=== PATIENT | female | born 1960 | race Caucasian/White ===

== ENCOUNTER → 2022-09-29 | Outpatient (CLI) | payer BC ==
--- NOTE | 2022-09-29 20:02 | CT ---
EXAMINATION TYPE: CT pelvis wo con DATE OF EXAM: 09/29/2022 COMPARISON: None. HISTORY: pain pelvis and left hip. unilateral primary osteoarthritis left hip. Left hip and leg pain for [address] DLP: 177.0 mGycm Automated exposure control for dose reduction was used. 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 Osseous structures are dem ineralized. Left hip shows asymmetric moderate to severe superior narrowing with endplate sclerosis. There is juliet tical linear lucency consistent with acute or subacute fracture through the lateral aspect of the sup erior acetabulum coronal images 21 through 24 with adjacent sclerosis. There is 8mm triangular shaped lucent lesion in the superior left femoral head coronal image 23 could reflect adjacent bony avulsio n injury. Other etiologies not excluded. Muscle bulk is maintained. No groin hernia or adenopathy is seen. Visualized pelvis shows no suspicious bowel dilatation. There is posterior left hernia defect contain ing nondilated bowel consistent with inferior lumbar hernia on axial image 13. IMPRESSION: As above.
== END | disposition home or self-care (01) ==
LOC: RADCTMAIN 18:38
PROVIDERS: ATTEND Orthopaedic Surgery
DX: M16.12 Unilateral primary osteoarthritis, left hip (principal); M25.562 Pain in left knee; M25.852 Other specified joint disorders, left hip; K46.9 Unspecified abdominal hernia without obstruction or gangrene
CPT/HCPCS: 72192

== ENCOUNTER → 2023-07-09 | Outpatient (CLI) | payer BC ==
[2023-07-09 12:54] LABS: INR 0.9 (<1.2); Partial Thromboplastin Time 22.8 sec (22.0-30.0); Prothrombin Time 9.8 sec (10.0-12.5)
[2023-07-09 15:17] LABS: ALT 17 U/L (8-44); AST 19 U/L (13-35); Albumin 4.7 g/dL (3.8-4.9); Albumin/Globulin Ratio 2.24 Ratio (1.60-3.17); Alkaline Phosphatase 77 U/L (41-126); BUN/Creat Ratio 16.83 Ratio (12.00-20.00); Blood Urea Nitrogen 10.1 mg/dL (9.0-27.0); Calcium 10.2 mg/dL (8.7-10.3); Chloride 104 mmol/L (96-109); Globulin 2.1 g/dL (1.6-3.3); Glucose 82 mg/dL (70-110); Sodium 143 mmol/L (135-145); Total Bilirubin 0.5 mg/dL (0.3-1.2); Total Protein 6.8 g/dL (6.2-8.2)
[2023-07-09 15:24] LABS: HCT 43.6 % (37.2-46.3); MCH 31.8 pg (27.0-32.0); MCHC 32.1 g/dL (32.0-37.0); MCV 99.1 FL (80.0-97.0); Mean Platelet Volume 9.2 FL (9.5-12.2); NRBC Per 100 WBC 0 X 10*3/uL (0.00-0.01); Platelet Count 281 X 10*3/uL (140-440); RDW 11.9 % (11.5-14.5); WBC 7.01 X 10*3/uL (4.50-10.00)
== END | disposition home or self-care (01) ==
LOC: LABPAT 11:28
PROVIDERS: ATTEND Orthopaedic Surgery
DX: Z01.812 Encounter for preprocedural laboratory examination (principal); M16.12 Unilateral primary osteoarthritis, left hip; Z22.322 Carrier or suspected carrier of Methicillin resistant Staphylococcus aureus
CPT/HCPCS: 80053; 83036; 85027; 85610; 85730; 86850; 86900; 86901; 87070

== ENCOUNTER 2023-07-15 05:33 | Observation (INO) | payer BC ==
[2023-07-14 09:07] VITALS: BMI 20.2
[2023-07-15] MEDS ORDERED: HYDROmorphone 0.5 MG/0.5 ML SYRINGE IVP PRN ×3 (05:49→09:44)
[2023-07-15] MEDS ORDERED: LIDOCAINE 1% (10MG/ML) FOR IV START INTRADERMA PRN (05:49)
[2023-07-15] MEDS ORDERED: ONDANSETRON 4 MG/2 ML VIAL IVP PRN ×2 (06:00→09:44)
[2023-07-15] MEDS ORDERED: TRANEXAMIC 1,000 MG/100ML-NACL 1,000 MG in SALINE 1 100ML.BAG IVPB PRN (06:00)
[2023-07-15] MEDS ORDERED: TRANEXAMIC 1,000 MG/100ML-NACL 1,000 MG in SALINE 1 100ML.BAG IV PRN (06:00)
[2023-07-15] MEDS: LACTATED RINGERS 1,000 ML IV SCH ×2 (06:16→15:52)
[2023-07-15] MEDS: ACETAMINOPHEN TAB 500 MG TAB PO PRN (06:19)
[2023-07-15] MEDS: DOCUSATE 100 MG CAP PO PRN (06:19)
[2023-07-15] MEDS: oxyCODONE ER 10 MG TAB.ER.12H PO PRN (06:20)
[2023-07-15] MEDS: ONDANSETRON 4 MG/2 ML VIAL IVP ONE (06:22)
[2023-07-15] MEDS: FAMOTIDINE 20 MG/2 ML VIAL IVP PRN (06:22)
[2023-07-15] MEDS: DEXAMETHASONE SOD PHOSPHATE 10 MG/ML 1 ML VIAL IV PRN (06:23)
[2023-07-15] MEDS: KETOROLAC 15 MG/ML 1 ML VIAL IVP PRN (06:23)
[2023-07-15] MEDS: fentaNYL (PF) 50 MCG/ML 2 ML AMP IVP ONE (06:43)
[2023-07-15] MEDS: MIDAZOLAM 2 MG/2 ML VIAL IVP ONE (06:43)
[2023-07-15] MEDS ORDERED: SODIUM CHLORIDE 0.9% (PF) 10 ML VIAL ONE (06:57)
[2023-07-15] MEDS ORDERED: TRANEXAMIC 1,000 MG/100ML-NACL PREMIX BAG ONE (06:57)
[2023-07-15] MEDS ORDERED: ROCURONIUM 10 MG/ML (5 ML VIAL) IV ONE (06:57)
[2023-07-15] MEDS ORDERED: fentaNYL (PF) 50 MCG/ML 2 ML AMP ONE (06:57)
[2023-07-15] MEDS ORDERED: GLYCOPYRROLATE 0.2 MG/ML 2 ML VIAL ONE (06:57)
[2023-07-15] MEDS ORDERED: ePHEDrine 50 MG/ML 1 ML VIAL ONE (06:57)
[2023-07-15] MEDS ORDERED: LIDOCAINE 1% INJ 10MG/ML (20 ML MDV) ONE (06:57)
[2023-07-15] MEDS ORDERED: ROPIVACAINE 5 MG/ML 30 ML VIAL ONE (06:57)
[2023-07-15] MEDS ORDERED: DEXAMETHASONE SOD PHOSPHATE 4 MG/ML 1 ML VIAL ONE (06:57)
[2023-07-15] MEDS ORDERED: PHENYLEPHRINE-0.9% NACL SYG 1,000 MCG/10 ML SYRINGE ONE (06:57)
[2023-07-15] MEDS ORDERED: NEOSTIGMINE 1 MG/ML 10 ML VIAL ONE (06:57)
[2023-07-15] MEDS ORDERED: PROPOFOL 10 MG/ML 20 ML VIAL IV ONE (06:57)
[2023-07-15] MEDS ORDERED: MIDAZOLAM 2 MG/2 ML VIAL ONE (06:57)
--- NOTE | 2023-07-15 07:08 | P.ANPRN ---
Procedure Note - Anesthesia - Nerve Block Performed Left Hai Single Time Out Performed: Yes Date of Procedure: 07/15/23 Procedure Start Time: 06:42 Procedure Stop Time: 06:48 Location of Patient: PreOp Indication: Acute Post-Operative Pain, Requested by Surgeon Sedation Type: Sedate with meaningful contact maintained Preparation: Sterile Prep Position: Supine Needle Types: Pajunk Needle Gauge: 21 Ultrasound used to visualize needle placement: Yes Ultrasound used to observe medication spread: Yes Injectate: 0.5% Ropivacaine (see comment for volume) (20 ml + 10 ml NS + 4 mg Dexamethasone) Blood Aspirated: No Pain Paresthesia on Injection Noted: No Resistance on Injection: Normal Image Stored and Saved: Yes Events: Uneventful and Well Tolerated
[2023-07-15] MEDS: ROPIVACAINE/EPI/CLONIDINE/KET 50 ML SYRINGE MISCELLANE PRN (08:07)
[2023-07-15] MEDS: EPINEPHrine 2 MG in SODIUM CHLORIDE 0.9% 200 ML IV ONE (08:18)
[2023-07-15] MEDS: LACTATED RINGERS 1,000 ML IV ONE ×2 (08:19→12:34)
[2023-07-15] MEDS ORDERED: NALOXONE 0.4 MG/ML 1 ML VIAL IV PRN (09:44)
[2023-07-15] MEDS ORDERED: HYDROmorphone 1 MG/ML 1 ML SYRINGE IVP PRN (09:44)
[2023-07-15] MEDS ORDERED: MAGNESIUM HYDROXIDE 2,400 MG/30 ML CUP PO PRN (09:44)
[2023-07-15] MEDS ORDERED: HYDROcodone/APAP 5-325MG 1 EACH TAB PO PRN (09:44)
--- NOTE | 2023-07-15 09:51 | P.OP ---
Date of Procedure: 07/15/23 Preoperative Diagnosis: 1. Severe left hip osteoarthritis 2. Severe osteopenia 3. Prior extensive spine fusion 4. Prior iliac crest bone graft harvest resulting in herniation status post repair at [facility] Postoperative Diagnosis: Same. Procedure(s) Performed: Left direct anterior total hip arthroplasty Implants: 1. Jaleel Trident II Acetabular Cup, Size #50 2. Jaleel Accolade C Size # 4 Femoral Stem, Standard Offset 3. Dual Mobility OD 38 mm, ID 22.2 mm, +0 neck Anesthesia: LAW, regional Surgeon: Brian Hager Recycling Tech #1: Stephy Weinstein Estimated Blood Loss (ml): 100 IV fluids (ml): 1,200 Pathology: none sent Condition: stable Disposition: PACU Indications for Procedure: The patient is very pleasant 62-year-old female who presented to my office for severe left hip pain and x-rays showing advanced left hip osteoarthritis. Her x-rays showed an extensive spinal fusion and she had a history of iliac crest bone graft harvest. On her preoperative pelvis x-ray herniated bowel was noted so she was sent to [facility] for laparoscopic repair of her hernia. Following this she was cleared for left hip replacement by her general surgeon at the [facility]. I met with the patient preoperatively and her laparoscopic incisions were well-healed and there were no lesions or concerning findings over the anterior aspect of the hip. We both agreed to proceed with a left hip replacement given her severe and incapacitating pain. I had a long discussion with the patient in the office on the potential risks and complications of an elective total hip replacement through a direct anterior approach. Risks discussed include, but are certainly not limited to, risks from anesthesia, superficial infection requiring local wound care or antibiotics, deep yamileth-prosthetic joint infection and the treatment required to eradicate infection, intraoperative fracture, postoperative periprosthetic fracture, damage to local blood vessels or nerves particularly the lateral femoral cutaneous nerve, delayed wound healing requiring local wound care or possibly surgical debridement, hip dislocation, leg length discrepancy, soft tissue irritation around the total hip implant such as iliopsoas tendinitis or trochanteric bursitis, wear and osteolysis from the implants, squeaking or audible noises, groin pain, thigh pain, heterotopic ossification, stiffness, as eptic loosening of the implants, dissatisfaction with surgical outcome, need for revision surgery, DVT, PE, swelling of the operative extremity, acute coronary event, stroke, failure to thrive, and possibly loss of life or limb. The patient understands that while these are the most common complications after an elective hip replacement there are certainly other less common complications possible. They were given ample time to ask questions regarding the potential complications of a hip replacement. Following our discussion the patient provided their verbal and written consent to go forward with an elective total hip replacement. Operative Findings: The patient was noted to have severe osteopenia and very poor bone quality both on the acetabular side and femur. I had an excellent press fit with the cup which was augmented with a single screw. The patient was found to have exceedingly poor bone in the left proximal femur so I elected to use cemented femoral fixation to lower her risk of periprosthetic fracture. I also elected to use a dual mobility articulation to lower her risk of dislocation given her extensive spinal fusion and concern for altered hip spine dynamics. Description of Procedure: The patient was identified in the preoperative holding area and the correct hip was marked with my initials. I reviewed the procedure and consent with the patient. All of their questions were answered. The patient was then brought back into the operating room by anesthesia. While on the [facility] anesthesia was administered by the anesthesia team. Preoperative antibiotics and tranexamic acid were also given. After the patient was under anesthesia I examined their ankles to determine their preoperative leg length discrepancy. The skin over the anterior aspect of the hip was shaved to remove hair over the site of planned incision. Both feet and ankles were padded with webril and boots for the Bondurant were applied. The patient was then carefully transferred onto the Bondurant table. A perineal post was immediately placed. The arms were placed on arm holders and were well-padded. Both boots were secured to the spars on the Bondurant table. The patient was positioned so that the pelvis was centered over the post. Nonsterile drapes were applied. A timeout was performed identifying the correct patient, operative extremity, and procedure. At this point fluoroscopy was brought in to take preoperative images of the pelvis and operative hip. Using the standing AP pelvis from the office as a template, a comparable image was obtained with fluoroscopy. A metallic bar was used to create a bi-ischial line for use as a reference to leg length adjustments during the procedure. Global offset was also measured on both the operative and nonoperative leg. Fluoroscopy was then brought out and a pre-scrub using a chlorhexidine scrub brush was performed. The operative limb was then prepped and draped in the standard sterile fashion. An anterior longitudinal incision was made lateral and distal to the ASIS. The skin and subcutaneous tissues were incised sharply. The underlying tensor fascia was identified and incised in its midportion. The fascia was dissected free from the underlying muscle and the muscle belly was retracted. A blunt tipped cobra retractor was placed over the superior neck under the muscle fibers of the gluteus minimus. The deep enveloping fascia of the tensor was incised. The anterior leash of vessels were then identified and cauterized. The fascia between the rectus and the capsule was then incised and the pre-capsular fat was excised. A second Cobra was placed inferior to the neck. The interval between the rectus and iliocapsularis and the hip capsule was developed and a retractor was placed carefully over the anterior rim of the acetabulum. A T-shaped anterior capsulotomy was performed. The superior capsular leaflet was left in place in the inferior capsular flap was excised. The Cobra retractors were placed intracapsularly. We then made a femoral neck osteotomy according to preoperative and intraoperative templating and confirmed the level of the osteotomy using fluoroscopic imaging. The femoral head was removed, passed off to the back table, and sized. The superior capsular flap was excised. Retractors were placed circumferentially exposing the acetabulum. We then circumferentially debrided the acetabulum free of labrum and osteophytes. The pulvinar was removed to fully visualize the cotyloid fossa. We then sequentially reamed to achieve peripheral fit and excellent bleeding subchondral bone. The socket was thoroughly irrigated. The acetabular component was impacted into the appropriate position using fluoroscopy to guide version, inclination, and depth of insertion taking care to have a comparable image of the AP pelvis to the standing image taken in the office. An excellent press-fit was achieved and final position was confirmed using fluoroscopy. The press fit was augmented with bony cancellus dome screws. The liner was then impacted into the socket. Attention was then turned to the femur. The remnant dorsal lateral capsule was excised. The short external rotators were visible and protected. A bone hook was used to confirm appropriate translation of the trochanter away from the acetabulum. The leg was then extended and adducted and the bone hook was used to elevate the femur for broaching. On inspection of the patient's proximal femur, they appeared to have poor bone quality so I elected to proceed with cemented fixation of the femoral component. A box osteotome and blunt tipped canal sound was then utilized to gain access to the femoral canal. We then sequentially broached the femur in appropriate anteversion until torsional stability was achieved and the implant was felt to have reached the appropriate size to allow trialing. The neck cut was brought flush to the trial broach with a calcar planar. A trial neck and head were then placed onto the broach and the hip was atraumatically reduced under direct visualization. External rotation to 90 was performed to assess stability. Fluoroscopy was brought in. An AP and lateral fluoroscopic image of the proximal femur was obtained to assess position and fill of the trial broach. An AP of the pelvis was then obtained and matched to the preoperative image taken. A bi-ischial bar was then placed and measurements were taken to assess changes in length and offset. The hip was then carefully dislocated, the proximal femur was exposed, and the trial implants were removed. The proximal femur was then prepared for cementing. The canal was thoroughly irrigated with pulsatile lavage to remove blood and marrow contents. A cement restrictor was placed to a depth just distal to the tip of the final implant. Epinephrine-soaked gauze was then packed into the proximal femur. 2 bags of cement were then mixed using a centrifuge and placed into a cement gun. Anesthesia was notified that cementing was about to commence to make sure the patient was appropriately ventilated and hydrated. Once the cement had reached appropriate consistency, the cement gun was used to fill the canal in a retrograde fashion starting at the restrictor. Cement was then pressurized into the canal with a blue tipped international representative. The stem was then carefully introduced into the cement taking care to guide the implant into appropriate version. The stem was held in position until the cement had fully set. All extra cement was removed while the cement was hardening. The trunnion was cleansed and the final head was tapped into place to engage the Razo taper. The acetabulum was irrigated and visualized to be free of debris. The hip was carefully reduced. Stability was checked clinically with external rotation to 90 and there was no evidence of instability. Final fluoroscopic images were taken. The wound was then thoroughly irrigated and soaked with a dilute Betadine rinse for 3 minutes. 3 L of sterile saline was irrigated through the wound using pulsatile lavage. Local anesthetic cocktail was injected into the soft tissues around the surgical field. The wound was then closed in layers. A sterile dressing was placed over the surgical incision. The drapes were taken down and the patient was carefully transferred off of the Bondurant table. Following removal of the boots the leg lengths felt acceptable. The patient was then taken to recovery room having tolerated the procedure well. PLAN: The patient can weight-bear as tolerated on the operative extremity. 2 doses of postoperative antibiotics. DVT prophylaxis with aspirin 81 mg twice a day based on preoperative risk stratification. Physical therapy for gait training.
--- NOTE | 2023-07-15 10:21 | XR ---
EXAMINATION TYPE: XR Hip Limited LT DATE OF EXAM: 07/15/2023 Comparison: None Clinical History: 62-year-old female Status post hip surgery, assess surgical alignment Findings: Degenerative changes left SI joint. Post surgical change of left hip total arthroplasty. Acetabular c up and femoral stem components of the prosthesis appear well seated without periprosthetic fracture. Some residual bony spurring remains along the superolateral margin of the acetabular cup component. S ome mild bony debris is present along the superior aspect of the hip joint. Scattered soft tissue air related to recent operation. Alignment grossly anatomic. Impression: Uncomplicated postoperative appearance left total hip arthroplasty. Some mild bony debris noted super ior to the prosthetic left hip joint.
--- NOTE | 2023-07-15 10:22 | FL ---
EXAMINATION TYPE: FL guidance operating room, XR Hip Complete LT DATE OF EXAM: 07/15/2023 Comparison: None Clinical History: 62-year-old female LEFT ANTERIOR HIP Findings: 36 sec fluoro, 1.3738 Gycm2 LEFT ANTERIOR HIP replacement 7 images provided. Impression: Intraoperative fluoroscopy as above.
[2023-07-15] MEDS: droPERidol 5 MG/2 ML VIAL IVP ONE (15:52)
[2023-07-15] MEDS: ASPIRIN 81 MG PO SCH (20:29)
[2023-07-15] MEDS: SENNOSIDES-DOCUSATE SODIUM 1 EACH TAB PO SCH (20:29)
[2023-07-15] MEDS: HYDROcodone/APAP 5-325MG 1 EACH TAB PO PRN (20:30)
[2023-07-16] MEDS: FAMOTIDINE 20 MG TAB PO SCH (07:46)
[2023-07-16 08:46] VITALS: RESP 16
[2023-07-16 11:08] LABS: Basophils # (A) 0.03 X 10*3/uL (0.00-0.10); Basophils % (A) 0.3 %; Eosinophils # (A) 0.01 X 10*3/uL (0.04-0.35); Eosinophils % (A) 0.1 %; HCT 30.3 % (37.2-46.3); HGB 10.2 g/dL (12.0-15.0); Lymphocytes # (A) 1.63 X 10*3/uL (0.90-5.00); Lymphocytes % (A) 17.3 %; MCH 32.4 pg (27.0-32.0); MCHC 33.7 g/dL (32.0-37.0); MCV 96.2 FL (80.0-97.0); Mean Platelet Volume 10.2 FL (9.5-12.2); Monocytes # (A) 1.44 X 10*3/uL (0.20-1.00); Monocytes % (A) 15.3 %; NRBC Per 100 WBC 0 X 10*3/uL (0.00-0.01); Neutrophils # (A) 6.31 X 10*3/uL (1.80-7.70); Neutrophils % (A) 66.8 %; Platelet Count 188 X 10*3/uL (140-440); RBC 3.15 X 10*6/uL (4.10-5.20); RDW 11.9 % (11.5-14.5); WBC 9.44 X 10*3/uL (4.50-10.00)
[2023-07-16 11:17] LABS: African American GFR (CKD) >90 (>60 ml/min/1.73 sqM); Anion Gap 2 mmol/L; Blood Urea Nitrogen 10 mg/dL (7-17); Calcium 8.8 mg/dL (8.4-10.2); Carbon Dioxide 28 mmol/L (22-30); Chloride 107 mmol/L (98-107); Glucose 95 mg/dL (74-99); Non-African American GFR(CKD) >90 (>60 ml/min/1.73 sqM); Potassium 3.8 mmol/L (3.5-5.1); Sodium 137 mmol/L (137-145)
--- NOTE | 2023-07-16 13:13 | P.CONS ---
History of Present Illness - Reason for Consult Consult date: 07/16/23 Medical management Requesting physician: Brian Hager - Chief Complaint Left hip osteoarthritis, status post direct anterior total hip arthroplasty - History of Present Illness This is a 62-year-old female with past medical history significant for recent robotic repair of abdominal hernia May 13, 2023 at [facility], back surgery, lumbar spinal fusion, former nicotine dependence, depression, osteoarthritis, status post left direct anterior total hip arthroplasty. Tolerated procedure well. Reports ambulated in room to bathroom during the night, tolerated exert ion well. this morning reports increased pain. Became lightheaded and dizzy upon getting up this morning to chair, reported decreased blood pressure, recently had received pain medication. Currently comfortable laying in chair and receiving IV fluid bolus. Denies chest pain, palpitations or shortness of breath. Maintaining O2 sats in the high 90s on room air. Reports minimal diet intake x 3 days prior to surgery secondary to her hip pain. Passing flatus. Tmax 99.3, WBC 9.44. Hemoglobin 10.2, platelets 188. Chemistry unremarkable. Review of Systems ROS Statement: Those systems with pertinent positive or pertinent negative responses have been documented in the HPI. ROS Other: All systems not noted in ROS Statement are negative. Past Medical History Past Medical History: Osteoarthritis (OA) History of Any Multi-Drug Resistant Organisms: None Reported Past Surgical History: Back Surgery, Hernia Repair Additional Past Surgical History / Comment(s): Lumbar spinal fusion 1998, abdominal hernia repair 05/13/23. Past Anesthesia/Blood Transfusion Reactions: No Reported Reaction Past Psychological History: Depression Smoking Status: Former smoker Past Alcohol Use History: None Reported Past Drug Use History: None Reported - Past Family History Mother Family Medical History: No Reported History Medications and Allergies Home Medications Medication Instructions Recorded Confirmed Type Acetaminophen [Tylenol] 325 - 650 mg PO Q4-6H PRN 07/14/23 07/14/23 History Collagen (Unknown Dose) 1 dose PO DAILY 07/14/23 07/14/23 History Glucosamine (Unknown Dose) 1 tab PO DAILY 07/14/23 07/14/23 History Multivitamins, Thera [Multivitamin 1 tab PO DAILY 07/14/23 07/14/23 History (formulary)] Diclofenac Sodium [Voltaren] 75 mg PO BID #60 tab 07/15/23 Rx HYDROcodone/APAP 7.5-325MG [Marshall 1 - 2 tab PO Q6HR PRN #32 tab 07/15/23 Rx 7.5-325] Omeprazole 20 mg PO DAILY #30 tab 07/15/23 Rx Ondansetron Odt [Zofran Odt] 4 mg PO Q8HR PRN #14 tab 07/15/23 Rx Sennosides-Docusate Sodium 1 tab PO BID #60 tablet 07/15/23 Rx [Senokot-S] Aspirin 81 mg PO BID #60 tab 07/16/23 Rx Allergies Allergy/AdvReac Type Severity Reaction Status Date / Time venom-honey bee Allergy Anaphylaxis Verified 07/15/23 05:50 [bee venom (honey bee)] Physical Exam Vitals: Vital Signs Temp Pulse Resp BP BP Pulse Ox 07/16/23 07:21 99.3 F 93 16 109/66 98 07/16/23 01:47 98.5 F 103 H 18 117/75 95 07/15/23 20:10 98.6 F 86 18 100/62 95 07/15/23 14:26 98.8 F 89 18 110/68 98 07/15/23 13:38 95 16 103/62 100 07/15/23 13:08 87 16 101/62 98 Intake and Output 07/15/23 07/16/23 07/16/23 22:59 06:59 14:59 Other: Voiding Method Toilet # Voids 1 2 1 Weight 50.1 kg PHYSICAL EXAM: VITAL SIGNS: [As above] GENERAL: Alert and oriented x 3, sitting up in chair, no acute distress HEENT: Normocephalic, conjunctivae normal. eyes normal. MMM. NECK: Supple, no JVD. No thyroid enlargement. No LNs CARDIOVASCULAR: S1, S2 regular. No murmur RESPIRATION: Unlabored, equal air entry, essentially clear with bilateral bases diminished. ABDOMEN: Soft, nondistended, nontender . No guarding. Bowel sounds heard. LEGS: Left lower extremity dressing clean dry and intact, no calf tenderness, no edema. no swelling. Positive DP pulse. NERVOUS SYSTEM: Cranial N 2-12 grossly normal. No focal deficits. Strength and sensation grossly intact. Skin: Warm and dry, no rash Results CBC & Chem 7: 07/16/23 06:45 07/16/23 06:45 Labs: Abnormal Lab Results - Last 24 Hours (Table) 07/16/23 Range/Units 06:45 RBC 3.15 L (4.10-5.20) X 10*6/uL Hgb 10.2 L (12.0-15.0) g/dL Hct 30.3 L (37.2-46.3) % MCH 32.4 H (27.0-32.0) pg Monocytes # 1.44 H (0.20-1.00) X 10*3/uL Eosinophils # 0.01 L (0.04-0.35) X 10*3/uL Assessment and Plan Assessment: Left hip osteoarthritis, status post left direct anterior total hip arthroplasty Recent abdominal [facility]nia [facility] repair [facility] Postoperative atelectasis, expected outcome Lumbar spinal fusion, history of Former nicotine dependence Depression Plan: Continue on current medication using ,monitoring and symptomatic treatment. Aggressive pulmonary toileting with incentive spirometer reinforced. Pain management and DVT prophylaxis as per orthopedic surgery/primary. PT. The impression and plan of care has been dictated as directed. : I performed a history and examination of this patient, discussed the same with the dictator. I agree with the dictator's note ,documented as a scribe. Any additional findings or plans will be noted.
--- NOTE | 2023-07-16 13:25 | P.PN ---
Subjective Progress Note Date: 07/16/23 Patient is overall doing well. She states that early this morning however when she got up with therapy she became lightheaded and her blood pressure drop. She attributes this to not having eaten much over the last 3 days. At time of my evaluation this morning she is doing well and her pain is controlled. Objective - Vital Signs Vital signs: Vital Signs Temp 99.3 F 07/16/23 07:21 Pulse 93 07/16/23 07:21 Resp 16 07/16/23 07:21 BP 109/66 07/16/23 07:21 Pulse Ox 98 07/16/23 07:21 FiO2 Intake & Output 07/15/23 07/16/23 07/16/23 18:59 06:59 18:59 Intake Total 2000 Output Total 100 Balance 1901 Weight 50.1 kg Intake: IV 2000 Output: Estimated Blood Loss 100 Other: Voiding Method Toilet # Voids 1 2 1 - Exam The patient is sitting up at bedside in a chair. She is alert and able to answer questions. A focused exam of the left hip shows an intact dressing over the anterior aspect of the hip. There is minimal swelling in the leg. Femoral nerve function is intact. Distally she is able to actively plantarflex and dorsiflex her ankle and her toes - Labs CBC & Chem 7: 07/16/23 06:45 07/16/23 06:45 Labs: Abnormal Lab Results - Last 24 Hours (Table) 07/16/23 Range/Units 06:45 RBC 3.15 L (4.10-5.20) X 10*6/uL Hgb 10.2 L (12.0-15.0) g/dL Hct 30.3 L (37.2-46.3) % MCH 32.4 H (27.0-32.0) pg Monocytes # 1.44 H (0.20-1.00) X 10*3/uL Eosinophils # 0.01 L (0.04-0.35) X 10*3/uL Assessment and Plan Assessment: Post-operative day #1 status post left direct anterior total hip arthroplasty Plan: 1. Weight bear as tolerated on the operative extremity, up with assistance and a walker 2. DVT prophylaxis with aspirin 81 mg BID 3. 2 doses of post operative antibiotics 4. Leave surgical dressing in place 5. Internal medicine for yamileth-operative medical management 6. Physical therapy for gait training and mobilization 7. Dispo: Discharge home later today if passes PT, she is cleared by internal medicine, her vital signs are stable and pain controlled. If she needs another night she can stay until tomorrow given her hypotensive episode earlier today.
--- NOTE | 2023-07-16 15:38 | P.DS ---
Providers Date of admission: 07/16/23 12:48 Attending physician: Brian Hager Consults: 07/15/23 09:44 Consult Physician Routine Consulting Provider: Richmond Dasilva Consult Reason/Comments: Medical management Do you want consulting provider notified?: Yes Primary care physician: Michelle Dasilva [facility] Course: The patient is a very pleasant previously healthy 62-year-old female who was admitted yesterday and underwent an uncomplicated left total hip replacement. Following surgery she was transferred to the orthopedic floor. She received 2 doses of postoperative antibiotics. She was started on aspirin for DVT prophylaxis. She was transitioned from IV to oral pain medications. On initial attempt on postoperative day #1 to get up with therapy she became hypotensive and lightheaded. This resolved and she was ultimately able to work with physical therapy and did well. I saw her on postoperative day #1 and she was doing well. She had minimal pain in her hip. Her dressing was intact. Motor and sensory function are intact throughout the left leg. Internal medicine managed term perioperative medical issues. She was ultimately cleared for discharge home on postoperative day #1 Plan - Discharge Summary Discharge Rx Participant: Yes New Discharge Prescriptions: New HYDROcodone/APAP 7.5-325MG [[place] 7.5-325] 1 - 2 tab PO Q6HR PRN #32 tab PRN Reason: Pain Omeprazole 20 mg PO DAILY #30 tab Sennosides-Docusate Sodium [Senokot-S] 1 tab PO BID #60 tablet Ondansetron Odt [Zofran Odt] 4 mg PO Q8HR PRN #14 tab PRN Reason: Nausea Diclofenac Sodium [Voltaren] 75 mg PO BID #60 tab Aspirin 81 mg PO BID #60 tab No Action Acetaminophen [Tylenol] 325 - 650 mg PO Q4-6H PRN PRN Reason: Pain Collagen (Unknown Dose) 1 dose PO DAILY Glucosamine (Unknown Dose) 1 tab PO DAILY Multivitamins, Thera [Multivitamin (formulary)] 1 tab PO DAILY Discharge Medication List Acetaminophen [Tylenol] 325 - 650 mg PO Q4-6H PRN 07/14/23 [History] Collagen (Unknown Dose) 1 dose PO DAILY 07/14/23 [History] Glucosamine (Unknown Dose) 1 tab PO DAILY 07/14/23 [History] Multivitamins, Thera [Multivitamin (formulary)] 1 tab PO DAILY 07/14/23 [History] Diclofenac Sodium [Voltaren] 75 mg PO BID #60 tab 07/15/23 [Rx] HYDROcodone/APAP 7.5-325MG [Enid 7.5-325] 1 - 2 tab PO Q6HR PRN #32 tab 07/15/23 [Rx] Omeprazole 20 mg PO DAILY #30 tab 07/15/23 [Rx] Ondansetron Odt [Zofran Odt] 4 mg PO Q8HR PRN #14 tab 07/15/23 [Rx] Sennosides-Docusate Sodium [Senokot-S] 1 tab PO BID #60 tablet 07/15/23 [Rx] Aspirin 81 mg PO BID #60 tab 07/16/23 [Rx] Follow up Appointment(s)/Referral(s): Brian Hager MD [Medical Doctor] - 2 Weeks Patient Instructions/Handouts: Anterior Hip Replacement (DC) Activity/Diet/Wound Care/Special Instructions: 1. Weight-bear as tolerated on your operative extremity unless instructed otherwise. Use a walker or other assistive device to ambulate. 2. Leave surgical dressing in place. If your dressing becomes saturated with blood, there is drainage, or the dressing becomes loose please contact the office. 3. It is okay to shower with your surgical dressing, but do not submerge in water (no hot tubs, bath's, swimming etc.) 4. Make sure to take her blood clot prevention medication as prescribed (aspirin, Eliquis, Xarelto, and Plavix are commonly prescribed medications for blood clot prevention) 5. While taking Enid or Percocet for pain make sure you're taking a stool softener (Colace) and drink lots of water. 6. Keep all follow-up appointments as scheduled. You will usually be seen in 1-2 weeks following surgery. 7. Please contact the office with any questions or concerns [phone] Discharge Disposition: HOME SELF-CARE
[2023-07-16 16:36] VITALS: BP 102/65; PULSE 81; TEMP 98.7
== END 2023-07-16 17:18 | disposition home or self-care (01) ==
LOC: OR 05:33 → 4SSUR 09:35 → OR 07-16 12:48
PROVIDERS: ADMIT Orthopaedic Surgery; ATTEND Orthopaedic Surgery
DX: M16.12 Unilateral primary osteoarthritis, left hip (principal); M85.80 Other specified disorders of bone density and structure, unspecified site; I95.81 Postprocedural hypotension; F32.A Depression, unspecified; Z79.899 Other long term (current) drug therapy; Z91.030 Bee allergy status; Z87.891 Personal history of nicotine dependence; Z98.1 Arthrodesis status; Z98.890 Other specified postprocedural states
CPT/HCPCS: 97530; 97161; 64447; 80048; 85025; 73501; 73502; 27130; G0378; C1776; C1713; J0171; J2250; J1100; J0690; J2405; J3010; J3490; J1885